=== PATIENT | male | born 1970 | race American Indian/Alaskan Native ===

== ENCOUNTER 2019-02-28 19:17 | Emergency (ER) | payer OTHER ==
[2019-02-28 19:30] VITALS: BP 111/78
--- NOTE | 2019-02-28 19:30 | Emergency Department Report ---
Blank Doc - Documentation Documentation: This is a 48-year-old male that presents with left foot pain with foreign body sensation. This initial assessment/diagnostic orders/clinical plan/treatment(s) is/are subject to change based on patient's health status, clinical progression and re- assessment by fellow clinical providers in the ED. Further treatment and workup at subsequent clinical providers discretion. Patient/guardians urged not to elope from the ED as their condition may be serious if not clinically assessed and managed. Initial orders include: 1- Patient sent to [facility] for further evaluation and treatment 2- xray
--- NOTE | 2019-02-28 20:05 | XRay Report ---
LEFT FOOT 3 VIEWS INDICATION / CLINICAL INFORMATION: Left foot pain along the undersurface. COMPARISON: None available. FINDINGS: BONES / JOINT(S): There is mild hallux valgus. 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 I see no evidence of fracture. SOFT TISSUES: There is mild bunion formation. There are multiple tiny calcific densities overlying th e great toe appeared to be in a soft or bandage on the lateral view. ADDITIONAL FINDINGS: None. Signer Name: Jorge Alberto Vega MD Signed: 02/28/2019 7:01 PM Workstation Name: [id number]
--- NOTE | 2019-02-28 22:48 | Emergency Department Report ---
ED Extremity Problem HPI - General Chief complaint: Extremity Injury, Lower Stated complaint: OBJECT IN LEFT FOOT Time Seen by Provider: 02/28/19 19:29 Source: patient Mode of arrival: Ambulatory Limitations: No Limitations - History of Present Illness Initial comments: Patient is a 48-year-old -[place] male with no past medical history presents to the ED with complaint of acute onset persistent nontraumatic left plantar foot pain for the last 2 months, worse in the last 2 days. Patient states that he suspects that there is an object embedded in his left foot that pricks him whenever he bears weight on the left foot. Patient denies walking bare feet, traumatic injury, numbness and tingling of her left foot, shortness of breath or fever. MD Complaint: extremity pain (LEFT PLANTAR), other (Plantar foot pain) -: Sudden, week(s) (2) Location: left, lower extremity (left plantar foot) History of Same: No -: Yes myalgia, Yes arthralgia Radiation: none Severity scale (0 -10): 5 Quality: aching, sharp Consistency: constant Improves with: nothing Worsens with: weight bearing, walking, palpation Associated Symptoms: denies other symptoms - Related Data Previous Rx's Medication Instructions Recorded Last Taken Type Ibuprofen [Motrin] 600 mg PO Q8H PRN #21 tablet 02/28/19 Unknown Rx Allergies Allergy/AdvReac Type Severity Reaction Status Date / Time ampicillin Allergy Unknown Verified 02/28/19 19:22 ED Review of Systems ROS: Stated complaint: OBJECT IN LEFT FOOT Other details as noted in HPI Comment: All other systems reviewed and negative Constitutional: denies: chills, fever Eyes: denies: eye pain, eye discharge, vision change ENT: denies: ear pain, throat pain Respiratory: denies: cough, shortness of breath, wheezing Cardiovascular: denies: chest pain, palpitations Endocrine: no symptoms reported Gastrointestinal: denies: abdominal pain, nausea, diarrhea Genitourinary: denies: urgency, dysuria Musculoskeletal: arthralgia (left foot), myalgia, other (left plantar foot). denies: back pain, joint swelling Skin: denies: rash, lesions Neurological: denies: headache, weakness, paresthesias Psychiatric: denies: anxiety, depression Hematological/Lymphatic: denies: easy bleeding, easy bruising ED Past Medical Hx - Past Medical History Previous Medical History?: No - Surgical History Past Surgical History?: No - Social History Smoking Status: Never Smoker Substance Use Type: Alcohol - Medications Home Medications: Home Medications Medication Instructions Recorded Confirmed Last Taken Type Ibuprofen [Motrin] 600 mg PO Q8H PRN #21 tablet 02/28/19 Unknown Rx ED Physical Exam - General Limitations: No Limitations General appearance: alert, in no apparent distress - Head Head exam: Present: atraumatic, normocephalic, normal inspection - Eye Eye exam: Present: normal appearance, PERRL, EOMI Pupils: Present: normal accommodation - ENT ENT exam: Present: normal exam, normal orophraynx, mucous membranes moist, TM's normal bilaterally, normal external ear exam - Neck Neck exam: Present: normal inspection, full ROM - Respiratory Respiratory exam: Present: normal lung sounds bilaterally. Absent: respiratory distress, wheezes, rales, rhonchi, chest wall tenderness, accessory muscle use, decreased breath sounds, prolonged expiratory - Cardiovascular Cardiovascular Exam: Present: regular rate, normal rhythm, normal heart sounds. Absent: systolic murmur, diastolic murmur, rubs, gallop - GI/Abdominal GI/Abdominal exam: Present: soft, normal bowel sounds. Absent: tenderness, guarding, rebound, hyperactive bowel sounds, hypoactive bowel sounds, organomegaly, mass - Rectal Rectal exam: Present: deferred - Extremities Exam Extremities exam: Present: normal inspection, full ROM, tenderness (left plantar foot pain), normal capillary refill - Back Exam Back exam: Present: normal inspection, full ROM. Absent: tenderness, CVA tenderness (R), CVA tenderness (L), muscle spasm, paraspinal tenderness - Neurological Exam Neurological exam: Present: alert, oriented X3, CN II-XII intact, normal gait, reflexes normal - Psychiatric Psychiatric exam: Present: normal affect, normal mood - Skin Skin exam: Present: warm, dry, intact, normal color. Absent: rash ED Course Vital Signs 02/28/19 19:29 Temperature 98.1 F Pulse Rate 74 Respiratory 18 Rate Blood Pressure 111/78 O2 Sat by Pulse 97 Oximetry - Reevaluation(s) Reevaluation #1: 02/28/19 22:57 Patient is alert and oriented 3 and is not in distress. Left foot x-ray shows no acute fractures or foreign object embedded left plantar foot. Patient was discharged home on pain medications and advised to follow-up with his primary care physician in 5-7 days for reevaluation. Patient was advised to return to the ED immediately if symptoms get worse. ED Medical Decision Making - Radiology Data Radiology results: report reviewed, image reviewed Left foot x-ray: No acute fractures - Medical Decision Making Patient is alert and oriented 3 and is not in distress. Left foot x-ray shows no acute fractures or foreign object embedded left plantar foot. Patient was discharged home on pain medications and advised to follow-up with his primary care physician in 5-7 days for reevaluation. Patient was advised to return to the ED immediately if symptoms get worse. - Differential Diagnosis Left plantar fasciitis; left foot sprain; left foot fracture Critical care attestation.: If time is entered above; I have spent that time in minutes in the direct care of this critically ill patient, excluding procedure time. ED Disposition Clinical Impression: Pain in left foot, Plantar wart, left foot Disposition: TO HOME OR SELFCARE Is pt being admited?: No Does the pt Need Aspirin: No Condition: Stable Instructions: Arthralgia (ED) Additional Instructions: Take medications with food, drink plenty of fluids and follow up with with your Primary Care physician as advised. Return to the ED immediately if symptoms get worse. Prescriptions: Ibuprofen [Motrin] 600 mg PO Q8H PRN #21 tablet PRN Reason: Pain Referrals: [facility] MD MICHI [Primary Care Provider] - 3-5 Days Time of Disposition: 22:46 Print Language: MAURITANIAN
== END 2019-02-28 23:01 | disposition home or self-care (01) ==
LOC: ED 19:17
DX: B07.0 Plantar wart (principal); M79.10 Myalgia, unspecified site; Z88.1 Allergy status to other antibiotic agents; Z79.1 Long term (current) use of non-steroidal anti-inflammatories (NSAID)
CPT/HCPCS: 99283